=== PATIENT | female | born 2005 | race Caucasian/White ===

== ENCOUNTER 2024-08-15 16:00 | Emergency (ER) | payer BC ==
[~2024-08-15] VITALS: Ht 160 cm; Wt 77.1 kg
[2024-08-15 17:36] LABS: PREGNANCY TEST URINE QUAL NEGATIVE (NEGATIVE)
[2024-08-15 17:43] LABS: BASOPHILS # (AUTO) 0.1 K/uL (0.0-0.2); BASOPHILS % (AUTO) 0.6 % (0.0-2.0); EOSINOPHILS # (AUTO) 0.3 K/uL (0.0-0.7); EOSINOPHILS % (AUTO) 3.5 % (0.0-6.0); HEMATOCRIT 27 % (33-45); HEMOGLOBIN 9.1 g/dL (11.5-14.8); LYMPHOCYTES # (AUTO) 2.5 K/uL (0.8-4.8); LYMPHOCYTES % (AUTO) 26.2 % (20.0-44.0); MEAN CORPUSCULAR HEMOGLOBIN 26 PG (26.0-33.0); MEAN CORPUSCULAR HGB CONC 34 g/dl (31.0-36.0); MEAN CORPUSCULAR VOLUME 77 fL (82-100); MONOCYTES # (AUTO) 0.8 K/uL (0.1-1.30); MONOCYTES % (AUTO) 8.2 % (2.0-12.0); NEUTROPHILS # (AUTO) 5.9 K/uL (1.8-8.9); NEUTROPHILS % (AUTO) 61.5 % (43.0-81.0); PLATELET COUNT (AUTO) 557 K/uL (150-450); RED BLOOD CELL COUNT(AUTO) 3.52 MIL/uL (4.0-5.2); RED CELL DISTRIBUTION WIDTH 17.1 % (11.5-15.0); WHITE BLOOD COUNT (AUTO) 9.5 K/uL (4.3-11.0)
[2024-08-15 17:54] LABS: CALCIUM, SERUM 8.5 mg/dL (8.5-10.1); CREATININE 0.8 mg/dL (0.6-1.3); POTASSIUM 4.1 mmol/L (3.5-5.1)
[2024-08-15 17:59] LABS: ALBUMIN 3.2 g/dL (3.4-5.0); BILIRUBIN,TOTAL 0.2 mg/dL (0.2-1.0); TOTAL PROTEIN, SERUM 6.8 g/dL (6.4-8.2)
[2024-08-15] MEDS: IV NS 0.9% 1,000 ML BAG IV ONE (18:25)
[2024-08-15] MEDS: SULFAMETH/TRIMETH 800/160 MG 1 UDTAB TABLET PO ONE (20:02)
[2024-08-15] MEDS: CEPHALEXIN MONOHYDRATE 500 MG CAPSULE PO ONE (20:02)
[2024-08-15 20:13] VITALS: BP 118/58; TEMP 98.1; O2SAT 98
== END 2024-08-15 20:14 | disposition home or self-care (01) ==
LOC: ER 16:04
DX: R10.11 Right upper quadrant pain (principal); R05.9 Cough, unspecified; R07.9 Chest pain, unspecified; D64.9 Anemia, unspecified; Z87.01 Personal history of pneumonia (recurrent); Z91.018 Allergy to other foods
CPT/HCPCS: 99284; 96360; 76700; 71045; 87426; 87804 ×2; 85025; 80048; 80076; 84703; 36415; J7030